=== PATIENT | female | born 1945 | race Caucasian/White ===

== ENCOUNTER 2018-03-16 09:13 | Outpatient (CLI) | payer MEDICARE, BC | END 2018-03-16 09:14 | disposition home or self-care (01) | LOC: BICMAMMO 09:13 | PROVIDERS: ATTEND Specialist | DX: Z08 Encounter for follow-up examination after completed treatment for malignant neoplasm (principal); Z85.3 Personal history of malignant neoplasm of breast; Z80.3 Family history of malignant neoplasm of breast | CPT/HCPCS: 77066; G0279 ==

== ENCOUNTER 2019-03-17 09:44 | Outpatient (CLI) | payer MEDICARE, BC ==
--- NOTE | 2019-03-17 09:35 | MMO ---
Bilateral MAMMO Bilat Diag [facility]. CLINICAL HISTORY: Patient is 73 years old and is seen for diagnostic exam. The patient has no family history of breast cancer. The patient has a history of malignant (generic) in the right breast in 2014. The patient has a history of right Excisional Biopsy in 2014 - malignant. VIEWS: The views performed were: bilateral craniocaudal with tomosynthesis; bilateral mediolateral oblique with tomosynthesis; and bilateral mediolateral with tomosynthesis. FILMS COMPARED: The present examination has been compared to prior imaging studies performed at [facility] on 02/27/2015, 03/03/2016, 03/10/2017 and 03/16/2018. MAMMOGRAM FINDINGS: The breasts are heterogeneously dense, which could obscure a lesion on mammography. Finding 1: There is a post-surgical scar seen in the right breast. Finding 2: Benign calcifications are noted bilaterally. There are no suspicious masses, suspicious calcifications, or new areas of architectural distortion. IMPRESSION: THERE IS NO MAMMOGRAPHIC EVIDENCE OF MALIGNANCY. A ROUTINE FOLLOW-UP MAMMOGRAM IN 1 YEAR IS RECOMMENDED. THE RESULTS OF THIS EXAM WERE SENT TO THE PATIENT. ACR BI-RADS Category 2 - Benign finding MAMMOGRAPHY NOTE: 1. A negative mammogram report should not delay a biopsy if a dominant of clinically suspicious mass is present. 2. Approximately 10% to 15% of breast cancers are not detected by mammography. 3. Adenosis and dense breasts may obscure an underlying neoplasm.
== END 2019-03-17 09:45 | disposition home or self-care (01) ==
LOC: BICMAMMO 09:44
PROVIDERS: ATTEND Internal Medicine Medical Oncology
DX: Z08 Encounter for follow-up examination after completed treatment for malignant neoplasm (principal); Z85.3 Personal history of malignant neoplasm of breast
CPT/HCPCS: 77066; G0279

== ENCOUNTER 2019-05-31 08:29 | Outpatient (CLI) | payer MEDICARE, BC ==
--- NOTE | 2019-05-31 11:06 | BD ---
DEXA BONE DENSITY SCAN: DATE: 05/31/2019. COMPARISON: None. HISTORY: Postmenopausal female undergoing screening for osteoporosis. FINDINGS: Lumbar Spine: BMD (g/cm2) L1 0.844 T-Score: -1.3 L2 0.937 T-Score: -0.8 L3 1.091 T-Score: 0.1 L4 1,922 T-Score: -0.4 L1-L4 0.982 T-Score: -0.6 Femoral Neck: 0.694 T-Score: -1.4 Total Femur: 0.870 T-Score: -0.6 FRAX-WHO fracture risk assessment too reports a 10-year fracture risk in an untreated patient at 11% for major osteoporotic fracture and 2.2% for a hip fracture. Impression: There is osteopenia within the femoral neck correlating with a moderately increased risk for fracture . POS: OFF
== END 2019-05-31 08:30 | disposition home or self-care (01) ==
LOC: BICMAMMO 08:29
PROVIDERS: ATTEND Family Medicine
DX: Z13.820 Encounter for screening for osteoporosis (principal); M85.89 Other specified disorders of bone density and structure, multiple sites
CPT/HCPCS: 77080

== ENCOUNTER 2020-03-19 09:18 | Outpatient (CLI) | payer MEDICARE, BC ==
--- NOTE | 2020-03-19 09:49 | MMO ---
Bilateral MAMMO Bilat Screen [facility]. CLINICAL HISTORY: Patient is 74 years old and is seen for screening. The patient has the following family history of breast cancer: mother, malignant (generic) and sister, malignant (generic). The patient has a history of malignant (generic) in the right breast in 2013. The patient has a history of right Excisional Biopsy in 2014 - malignant. VIEWS: The views performed were: bilateral craniocaudal with tomosynthesis and bilateral mediolateral oblique with tomosynthesis. FILMS COMPARED: The present examination has been compared to prior imaging studies performed at [facility] on 03/03/2016, 03/10/2017, 03/16/2018 and 03/17/2019. This study has been interpreted with the assistance of computer-aided detection. MAMMOGRAM FINDINGS: The breasts are heterogeneously dense, which could obscure a lesion on mammography. Finding 1: There are stable post operative changes seen in the right breast. Finding 2: There are stable benign appearing calcifications seen in both breasts. There are also vascular calcifications. There are no suspicious masses, suspicious calcifications, or new areas of architectural distortion. IMPRESSION: THERE IS NO MAMMOGRAPHIC EVIDENCE OF MALIGNANCY. A ROUTINE FOLLOW-UP MAMMOGRAM IN 1 YEAR IS RECOMMENDED. THE RESULTS OF THIS EXAM WERE SENT TO THE PATIENT. ACR BI-RADS Category 2 - Benign finding MAMMOGRAPHY NOTE: 1. A negative mammogram report should not delay a biopsy if a dominant of clinically suspicious mass is present. 2. Approximately 10% to 15% of breast cancers are not detected by mammography. 3. Adenosis and dense breasts may obscure an underlying neoplasm. Reported by: LIANG MCARTHUR MD Electonically Signed: [id number]
== END 2020-03-19 09:19 | disposition home or self-care (01) ==
LOC: BICMAMMO 09:18
PROVIDERS: ATTEND Internal Medicine Medical Oncology
DX: Z12.31 Encounter for screening mammogram for malignant neoplasm of breast (principal); Z80.3 Family history of malignant neoplasm of breast; Z85.3 Personal history of malignant neoplasm of breast; Z91.89 Other specified personal risk factors, not elsewhere classified
CPT/HCPCS: 36415; 77063; 77067; 80048